=== PATIENT | female | born 1990 | race American Indian/Alaskan Native ===

== ENCOUNTER 2021-07-11 15:37 | Emergency (ER) | payer MEDICAID, OTHER ==
[2021-07-11 16:04] VITALS: BP 182/127
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
== END 2021-07-11 16:40 | disposition home or self-care (01) ==
LOC: ED 15:37
DX: M25.512 Pain in left shoulder (principal); I10 Essential (primary) hypertension; V59.49XA Driver of pick-up truck or van injured in collision with other motor vehicles in traffic accident, initial encounter; Y92.410 Unspecified street and highway as the place of occurrence of the external cause; Y93.89 Activity, other specified; Y99.8 Other external cause status
CPT/HCPCS: 99282